=== PATIENT | female | born 1990 | race American Indian/Alaskan Native ===

== ENCOUNTER 2018-11-26 01:05 | Emergency (ER) | payer SELFPAY ==
[2018-11-26] MEDS ORDERED: TYLENOL PO ONE (01:44)
[2018-11-26] MEDS ORDERED: TYLENOL ONE (01:47)
--- NOTE | 2018-11-26 02:46 | XRay Report ---
FINAL REPORT EXAM: XR Right Wrist CLINICAL INDICATIONS: PAIN/SWELLING FINDINGS: PA and lateral views of the right wrist were acquired and demonstrate no fracture or malalignment of the right wrist. No erosion is seen. IMPRESSION: NO FRACTURE OR MALALIGNMENT OF THE RIGHT WRIST
[2018-11-26] MEDS ORDERED: IBUPROFEN PO ONE (05:35)
[2018-11-26] MEDS ORDERED: IBUPROFEN ONE (05:38)
== END 2018-11-26 05:45 | disposition left against medical advice (07) ==
LOC: ED 01:05
DX: M25.531 Pain in right wrist (principal); Z53.21 Procedure and treatment not carried out due to patient leaving prior to being seen by health care provider

== ENCOUNTER 2021-06-04 16:54 | Emergency (ER) | payer SELFPAY ==
[2021-06-04 18:27] VITALS: BP 112/62
--- NOTE | 2021-06-04 19:54 | Emergency Department Report ---
ED Laceration HPI - HPI Chief Complaint: Wound/Laceration Stated Complaint: FINGER LAC Time Seen by Provider: 06/04/21 19:04 Occurred When: Before Yesterday Location: Upper Extremity (left distal middle finger) Tetanus Status: Up to Date (2016) Laceration Symptoms: Yes Pain, No Foreign Body Sensation, No Numbness, No Weakness Other History: This is a 30-year-old female nontoxic, well nourished in appearance, no acute signs of distress presents to the ED with c/o of left middle finger lac that occurred 2 days ago. Patient stated that she cut herself on a middle pole accidently. Patient denies decreased sensation or range of motion. Patient stated bleeding is under control. Denies any numbness, tingling, fever, chills, nausea, vomiting, chest pain, shortness of breath, headache or stiff neck. Patient denies any allergies to significant past medical history. Patient stated is UTD with tetanus as of 2016. ED Review of Systems ROS: Stated complaint: FINGER LAC Other details as noted in HPI Comment: All other systems reviewed and negative Constitutional: denies: chills, fever Eyes: denies: eye pain, eye discharge, vision change ENT: denies: ear pain, throat pain Respiratory: denies: cough, shortness of breath, wheezing Cardiovascular: denies: chest pain, palpitations Endocrine: no symptoms reported Gastrointestinal: denies: abdominal pain, nausea, diarrhea Genitourinary: denies: urgency, dysuria, discharge Musculoskeletal: denies: back pain, joint swelling, arthralgia Skin: denies: rash, lesions Neurological: denies: headache, weakness, paresthesias Psychiatric: denies: anxiety, depression Hematological/Lymphatic: denies: easy bleeding, easy bruising ED Past Medical Hx - Past Medical History Hx Asthma: Yes Additional medical history: 2 previous right knee dislocations (2012, 2013) - Surgical History Additional Surgical History: right foot surgery as a child - Social History Smoking Status: Never Smoker Substance Use Type: None - Medications Home Medications: Home Medications Medication Instructions Recorded Confirmed Last Taken Type methOCARBAMOL [Robaxin] 500 mg PO BID #14 tab 08/15/14 Unknown Rx Ibuprofen [Motrin 600 MG tab] 600 mg PO Q8H PRN #30 tablet 08/01/15 Unknown Rx traMADoL [Ultram 50 MG tab] 50 mg PO Q6HR PRN #14 tablet 05/29/16 Unknown Rx cephALEXin [Keflex] 500 mg PO Q8HR #21 cap 06/04/21 Unknown Rx Laceration Physical Exam - Exam General: Vital signs noted. No distress. Alert and acting appropriately. Neurovasular intact to left middle finger; normal cap refill <2 second; normal sensation; denies decreaed sensation; normal ROM of digits. Wound Length (cm): 1 (Left distal middle finger superficial) Laceration Location: Upper Extremity Laceration Exam: Yes Normal Distal CMS, No Foreign Body, No Exposed Tendon, Vessel, or Nerve, No Tendon Injury ED Course Vital Signs 06/04/21 18:25 Temperature 98.2 F Pulse Rate 71 Respiratory 16 Rate Blood Pressure 112/62 [Right] O2 Sat by Pulse 100 Oximetry - Reevaluation(s) Reevaluation #1: 06/04/21 19:54 Patient is speaking in full sentences with no signs of distress noted. ED Medical Decision Making - Radiology Data [facility] [address] [place] [address] XRay Report Signed Patient: JULIETTE MANUEL MR#: [id number] : 1990 Acct:[id number] Age/Sex: 30 / F ADM Date: 06/04/21 Loc: ED Attending Dr: Ordering Physician: NOE SEVERINO NP Date of Service: 06/04/21 Procedure(s): XR finger(s) 2+V LT Accession Number(s): [id number] cc: NOE SEVERINO NP Fluoro Time In Minutes: LEFT HAND, 3 VIEWS INDICATION / CLINICAL I NFORMATION: left finger lac... middle finger. COMPARISON: None available. FINDINGS: Minimal soft tissue laceration is noted along the dorsal aspect of the middle finger. No radiopaque foreign object or abnormal gas collection noted. The bones of the hand are intact and without abnormality. Certainly no fracture or dislocation noted. IMPRESSION: Minimal soft tissue laceration noted along the dorsal aspect of the middle finger. No other significant finding. Signer Name: Stefanie Argueta MD Signed: 06/04/2021 7:55 PM Workstation Name: [id number] Transcribed By: Dictated By: Stefanie Argueta MD Electronically Authenticated By: Stefanie Argueta MD Signed Date/Time: 06/04/211954 DD/ 52 TD/TT: - Medical Decision Making This is a 30-year-old female that presents with laceration. Patient is stable and was examined by me. Surgery has not been performed due to laceration occurring 2 days ago. Area has been properly cleaned and dressing applied. Patient was educated on proper wound care. Patient is discharged with Keflex. Patient is notified of the x-ray results with no questions noted by the patient. Patient was instructed to refer to Follow-up with a primary care doctor in 3-5 days or if symptoms worsen and continue return to emergency room as soon as possible. At time of discharge, the patient does not seem toxic or ill in appearance. No acute signs of distress noted. Patient agrees to discharge treatment plan of care. No further questions noted by the patient. Critical care attestation.: If time is entered above; I have spent that time in minutes in the direct care of this critically ill patient, excluding procedure time. ED Disposition Clinical Impression: Laceration of left middle finger Qualifiers: Encounter type: initial encounter Damage to nail status: without damage Foreign body presence: without foreign body Qualified Code(s): S61.213A - Laceration without foreign body of left middle finger without damage to nail, initial enc ounter Disposition: - TO HOME OR SELFCARE Is pt being admited?: No Does the pt Need Aspirin: No Condition: Stable Instructions: Laceration Care, Adult, Wound Care, Adult Additional Instructions: Follow-up with a primary care doctor in 3-5 days or if symptoms worsen and continue return to emergency room as soon as possible. Prescriptions: cephALEXin [Keflex] 500 mg PO Q8HR #21 cap Referrals: PRIMARY CAREMD [Referring] - 3-5 Days IDRIS GREEN MD [Staff Physician] - 3-5 Days KAITLIN BARRETO MD [Staff Physician] - 3-5 Days Forms: Work/School Release Form(ED) Time of Disposition: :21
--- NOTE | 2021-06-04 19:59 | XRay Report ---
LEFT HAND, 3 VIEWS INDICATION / CLINICAL INFORMATION: left finger lac... middle finger. COMPARISON: None available. FINDINGS: Minimal soft tissue laceration is noted along the dorsal aspect of the middle finger. No radiopaque f oreign object or abnormal gas collection noted. The bones of the hand are intact and without abnormality. Certainly no fracture or dislocation noted. IMPRESSION: Minimal soft tissue laceration noted along the dorsal aspect of the middle finger. No oth er significant finding. Signer Name: Stefanie Argueta MD Signed: 06/04/2021 7:55 PM Workstation Name: [id number]
== END 2021-06-04 20:30 | disposition home or self-care (01) ==
LOC: ED 16:54
DX: S61.213A Laceration without foreign body of left middle finger without damage to nail, initial encounter (principal); J45.909 Unspecified asthma, uncomplicated; Z88.6 Allergy status to analgesic agent; Z79.899 Other long term (current) drug therapy; X58.XXXA Exposure to other specified factors, initial encounter; Y93.89 Activity, other specified; Y92.89 Other specified places as the place of occurrence of the external cause; Y99.8 Other external cause status
CPT/HCPCS: 99283